=== PATIENT | female | born 2000 | race Caucasian/White ===

== ENCOUNTER 2019-06-05 22:44 | Emergency (ER) | payer BC, OTHER ==
[~2019-06-05] VITALS: Ht 170.2 cm; Wt 75.0 kg
[2019-06-05 23:59] VITALS: BP 131/81
--- NOTE | 2019-06-06 00:36 | PHYS DOC ---
Past Medical History Attending Signature I have participated in the care of this patient and I have reviewed and agree with all pertinent clinical information above including history, exam, and recommendations. (PITER RAZO MD) Adult General Chief Complaint Chief Complaint: OTHER COMPLAINTS [facility] HPI Patient is a 19 year old female who presents to the emergency department with complaints of nasal congestion and sinus pressure for the last 4 days. She states that she had bleeding from the left side of her nose 4 days ago for over an hour. She denies any current bleeding from either side of her nose. Patient states that in 2014 she was told that she had a mass in her sinus cavity but never followed up on it. She denies any fever, cough, shortness of breath, body aches, fatigue, difficulty swallowing, sore throat, nausea, vomiting, or diarrhea. She currently rates her discomfort an 8 out of 10 on the pain scale and describes it as fullness in her nose. She denies any alleviating factors. (SHARON AGUAYO APRN) Review of Systems Review of Systems Complete ROS is negative unless otherwise noted in HPI. (SHARON AGUAYO APRN) Allergies Allergies Allergies Coded Allergies Type Severity Reaction Last Updated Verified No Known Drug Allergies 06/06/19 No (PITER RAZO MD) Physical Exam Physical Exam See Above Constitutional: Well developed, well nourished, no acute distress HENT: Normocephalic, atraumatic, bilateral external ears normal, bilateral TMs normal, posterior pharynx normal oropharynx moist, nose congested with erythema and edema of the nasal turbinates bilaterally Eyes: PERRLA, conjunctiva injected bilaterally, no discharge. [] Neck: Normal range of motion, no stridor. [] Cardiovascular:Heart rate regular rhythm, no murmur [] Lungs & Thorax: Bilateral breath sounds clear to auscultation, Respirations even and unlabored, no retractions, no respiratory distress Skin: Warm, dry, no erythema, no rash. [] Extremities: No cyanosis, ROM intact Neurologic: Alert and oriented X 3, no focal deficits noted. [] Psychologic: Affect normal, judgement normal, mood normal. (SHARON AGUAYO APRN) Current Patient Data Vital Signs Vital Signs Date Time Temp Pulse Resp B/P (MAP) Pulse Ox O2 Delivery O2 Flow Rate FiO2 06/05/19 23:59 98.5 77 16 131/81 (98) 99 Room Air 98.5 (PITER RAZO MD) EKG EKG [] (SHARON AGUAYO APRN) Radiology/Procedures Radiology/Procedures [] (SHARON AGUAYO APRN) Course & Med Decision Making Course & Med Decision Making Pertinent Labs and Imaging studies reviewed. (See chart for details) [] (SHARON AGUAYO APRN) Dragon Disclaimer Dragon Disclaimer This electronic medical record was generated, in whole or in part, using a voice recognition dictation system. (SHARON AGUAYO APRN) Departure Departure Impression: Primary Impression: Congested nose Additional Impression: Acute rhinitis Disposition: 01 HOME, SELF-CARE Condition: STABLE Referrals: AURORA FOSTER DO (PCP) Patient Instructions: Allergic Rhinitis Additional Instructions: Use over the counter Flonase (fluticasone) nasal spray 2 sprays each nostril once daily in the morning. You may take Tylenol or ibuprofen as needed for pain/fever. Increase clear fluids. Avoid triggers such as smoke, fragrance, dust, and pollen. Recommend the use of a cool mist humidifier to help moisten the air in your home. Follow-up with your primary care doctor if symptoms persist, return to the ER if symptoms worsen. Problem Qualifiers SHARON AGUAYO APRN Jun 06, 2019 00:36 PITER RAZO MD Jun 06, 2019 05:50
== END 2019-06-06 00:55 | disposition home or self-care (01) ==
LOC: ER 22:44
DX: J00 Acute nasopharyngitis [common cold] (principal); R09.81 Nasal congestion; R60.0 Localized edema
CPT/HCPCS: 99281